=== PATIENT | male | born 1950 | race Hispanic/Latino ===

== ENCOUNTER 2018-02-13 11:40 | Emergency (ER) | payer MEDICARE ==
[2018-02-13 11:43] VITALS: BMI 21.9
[2018-02-13 11:44] VITALS: RESP 20; TEMP 97.6
[2018-02-13] MEDS ORDERED: Tetanus/Diphtheria Toxoids 0.5 ml Syringe IM ONE ×2 (12:34→12:46)
[2018-02-13] MEDS ORDERED: Lidocaine 1% w Epi 1:100,000 Inj IJ STA (12:36)
[2018-02-13] MEDS ORDERED: Lidocaine 1% MPF (30 ml) Inj ONE (12:47)
[2018-02-13] MEDS ORDERED: Lidocaine 1% (10 ml) Inj INFIL STA (13:23)
--- NOTE | 2018-02-13 14:22 | CT ---
PROCEDURE: CT HEAD WITHOUT CONTRAST. HISTORY: head injury COMPARISON: None available. TECHNIQUE: Axial computed tomography images were obtained through the head/brain without intravenous contrast. Radiation dose: Total exam DLP = 829.7 mGy-cm. This CT exam was performed using one or more of the following dose reduction techniques: Automated exposure control, adjustment of the mA and/or kV according to patient size, and/or use of iterative reconstruction technique. FINDINGS: HEMORRHAGE: No intracranial hemorrhage. BRAIN: No mass effect or edema. No atrophy or chronic microvascular ischemic changes. VENTRICLES: Unremarkable. No hydrocephalus. CALVARIUM: Age indeterminate bilateral nasal bone fractures. PARANASAL SINUSES: Unremarkable as visualized. No significant inflammatory changes. MASTOID AIR CELLS: Unremarkable as visualized. No inflammatory changes. OTHER FINDINGS: Rightward nasal septal deviation. Right frontal scalp hematoma. IMPRESSION: Right frontal scalp hematoma. Age indeterminate bilateral nasal bone fractures. No acute intracranial pathology.
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
--- NOTE | 2018-02-13 14:35 | CT ---
PROCEDURE: CT Cervical Spine without contrast HISTORY: fall, facial injury COMPARISON: None available. TECHNIQUE: Axial computed tomography images were obtained of the cervical spine without the use of intravenous contrast. Coronal and sagittal reformatted images were created and reviewed. Radiation dose: Total exam DLP = 340 mGy-cm. This CT exam was performed using one or more of the following dose reduction techniques: Automated exposure control, adjustment of the mA and/or kV according to patient size, and/or use of iterative reconstruction technique. FINDINGS: VERTEBRAE: No fracture. Normal alignment. There are arthro pathic cystic changes in the apophyseal joints on the left-sided L3-4 Diffuse endplate ridging and uncovertebral hypertrophy and apophyseal joint hypertrophy are also present. DISCS/SPINAL CANAL/NEURAL FORAMINA: No significant central canal or neural foraminal stenosis. Discs heights are narrowed diffusely especially at C5-6. PARASPINAL SOFT TISSUES: Unremarkable. OTHER FINDINGS: None. IMPRESSION: No fracture or subluxation. No high-grade spinal stenosis. Senescent osseous hypertrophic changes. Left-sided apophyseal joint arthropathic cystic changes as well
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
[2018-02-13 15:17] VITALS: BP 166/99; PULSE 77; O2SAT 99
== END 2018-02-13 15:47 | disposition home or self-care (01) ==
LOC: H.ER 11:40
DX: S01.81XA Laceration without foreign body of other part of head, initial encounter (principal); Z23 Encounter for immunization; S00.03XA Contusion of scalp, initial encounter; W03.XXXA Other fall on same level due to collision with another person, initial encounter; Y99.0 Civilian activity done for income or pay